=== PATIENT | female | born 1950 | race Caucasian/White ===

== ENCOUNTER 2019-07-16 15:10 | Outpatient (CLI) | payer MEDICARE ==
[2019-07-16 16:06] LABS: PARTIAL THROMBOPLASTIN TIME 27 SECONDS (22-32)
== END 2019-07-16 23:59 | disposition home or self-care (01) ==
LOC: LAB 15:10
PROVIDERS: ATTEND Otolaryngology
DX: D69.1 Qualitative platelet defects (principal)
CPT/HCPCS: 36415; 85576; 85610; 85730

== ENCOUNTER 2020-03-06 21:24 | Emergency (ER) | payer MEDICARE ==
[~2020-03-06] VITALS: Ht 165.1 cm; Wt 79.1 kg
[2020-03-06] MEDS ORDERED: glucagon, human recombinant 1mg kit IV ONE (21:45)
[2020-03-06] MEDS ORDERED: normal saline 1000ml 1,000 ML IV ONE (22:15)
[2020-03-06] MEDS ORDERED: ondansetron/PF 4mg/2ml inj IV ONE (22:15)
--- NOTE | 2020-03-06 22:28 | NUR ---
PO CHALLENGE UNSUCCESSFUL. PATIENT ATTEMPTED TO DRINK WATER, WAS UNABLE TO KEEP IT DOWN
--- NOTE | 2020-03-06 23:15 | NUR ---
PATIENT TO GI LAB
[2020-03-06 23:19] VITALS: BP 136/74
[2020-03-06] MEDS ORDERED: LIDOcaine Viscous 15ml cup ONE (23:24)
[2020-03-06] MEDS ORDERED: MIDAZolam 5mg/5ml vial ONE (23:24)
[2020-03-06] MEDS ORDERED: fentaNYL/PF 50MCG/1 ML 2ML syringe ONE (23:24)
[2020-03-06 23:50] VITALS: BP 99/61
[2020-03-07] VITALS: BP 100/60
[2020-03-07 00:10] VITALS: BP 111/62
[2020-03-07 00:20] VITALS: BP 109/73
[2020-03-07 00:36] VITALS: BP 124/87
[2020-03-07] MEDS ORDERED: MIDAZolam 5mg/ml 2ml vial IV ONE (00:50)
[2020-03-07] MEDS ORDERED: fentaNYL/PF 50MCG/1 ML 2ML syringe IV ONE (00:50)
== END 2020-03-07 00:53 | disposition home or self-care (01) ==
LOC: ER 21:24
DX: T18.128A Food in esophagus causing other injury, initial encounter (principal); K21.9 Gastro-esophageal reflux disease without esophagitis; X58.XXXA Exposure to other specified factors, initial encounter; Y93.89 Activity, other specified; Y92.89 Other specified places as the place of occurrence of the external cause; Y99.8 Other external cause status
CPT/HCPCS: 43239; 43247; 43248; 96374; 96375; 99284; J1610; J2250; J2405; J3010; J7030; 88305; 88312; 99152; A4620

== ENCOUNTER 2021-09-25 13:49 | Inpatient (IN) | payer MEDICARE ==
[~2021-09-25] VITALS: Ht 162.6 cm; Wt 72.3 kg
[2021-09-25 15:16] LABS: BASOPHILS # (AUTO) 0.1 X10'3 (0-0.2); BASOPHILS % (AUTO) 0.5 % (0-1); EOSINOPHILS % (AUTO) 0 % (0-6); HEMATOCRIT 41.5 % (35.0-45.0); LYMPHOCYTES # (AUTO) 1.1 X10'3 (1.1-4.8); LYMPHOCYTES % (AUTO) 8.2 % (21-51); MEAN CORPUSCULAR HEMOGLOBIN 30.5 PG (27.0-31.0); MEAN CORPUSCULAR HGB CONC 33.8 g/dL (33.0-36.5); MEAN CORPUSCULAR VOLUME 90.1 FL (78-98); MONOCYTES # (AUTO) 1.7 X10'3 (0-0.9); MONOCYTES % (AUTO) 12.7 % (2-12); NEUTROPHILS # (AUTO) 10.5 X10'3 (1.8-7.7); NEUTROPHILS % (AUTO) 78.6 % (42-75); PLATELET COUNT 215 X10'3 (140-440); RED CELL DISTRIBUTION WIDTH 14.2 % (11.5-14.5); WHITE BLOOD COUNT 13.4 X10'3 (4.5-11.0)
[2021-09-25 15:24] LABS: APTT 27 SECONDS (22-32); D-DIMER 1.42 MG/L FEU (0-0.50)
[2021-09-25 15:27] LABS: ALANINE AMINOTRANSFERASE 46 U/L (12-78); ALBUMIN 4.2 G/DL (3.4-5.0); ALBUMIN/GLOBULIN RATIO 1.1 (1.1-1.5); ALKALINE PHOSPHATASE 64 IU/L (46-116); ANION GAP 16 (8-16); ASPARTATE AMINO TRANSFERASE 30 U/L (10-37); BILIRUBIN,TOTAL 1.1 MG/DL (0.1-1.0); BLOOD UREA NITROGEN 34 MG/DL (7-18); BUN/CREATININE RATIO 15.9 (6.6-38.0); CALCIUM 10.7 MG/DL (8.5-10.1); CHLORIDE 102 MMOL/L (99-107); CREATININE 2.14 MG/DL (0.40-0.90); GLUCOSE 133 MG/DL (70-104); POTASSIUM 3.8 MMOL/L (3.5-5.1); SODIUM 139 MMOL/L (135-145); TOTAL CARBON DIOXIDE 20.6 MMOL/L (24-32); eGFR 23 ML/MIN
[2021-09-25 15:38] LABS: LIPASE 55 U/L (73-393); MAGNESIUM 1.8 MG/DL (1.5-2.4)
[2021-09-25] MEDS ORDERED: normal saline 1000ML IV soln IV ONE ×2 (16:10→17:25)
[2021-09-25] MEDS ORDERED: CefTRIAXone 2gm/D5W 50ml BAG 50 ML IV ONE (17:25)
[2021-09-25 19:30] LABS: CLARITY,URINE CLEAR (Clear); COLOR,URINE YELLOW (Yellow); GLUCOSE, URINE NEGATIVE (Neg); KETONES,URINE NEGATIVE (Neg); LEUKOCYTE ESTERASE ,URINE NEGATIVE (Neg); NITRITES, URINE NEGATIVE (Neg); OCCULT BLOOD,URINE TRACE-INTACT (Neg); PH,URINE 5.5 (4.8-8.0); PROTEIN,URINE NEGATIVE (Neg); UROBILINOGEN,URINE 0.2 E.U/dL (0.2-1.0)
[2021-09-25 19:33] LABS: UA COLLECTION TYPE CLN CATCH MIDSTREAM
[2021-09-25 19:36] LABS: BACTERIA,URINE FEW /HPF (Neg); RBC,URINE 0-2 /HPF (0-2); SQUAMOUS EPITHELIAL CELL,UR FEW /LPF (FEW)
[2021-09-25 19:37] LABS: MUCUS STRANDS FEW /LPF (Neg)
[2021-09-25] MEDS ORDERED: mag hydrox/Alum hydrox/simeth 30ml oral suspension PO PRN (21:05)
[2021-09-25] MEDS ORDERED: dextrose 50%-water 50ml dispensing syringe IV PRN ×2 (21:05)
[2021-09-25] MEDS ORDERED: dextrose ORAL solution 15 GM/59 ML bottle PO PRN ×2 (21:05)
[2021-09-25] MEDS ORDERED: acetaminophen 325mg tablet PO PRN (21:05)
[2021-09-25] MEDS ORDERED: potassium CL 10mEq/100ml bag 100 ML IV PRN (21:05)
[2021-09-25] MEDS ORDERED: magnesium Cl slow-release 64mg tablet PO PRN (21:05)
[2021-09-25] MEDS ORDERED: insulin Lispro (HumaLOG) vial - multi-dose SQ SCH (21:05)
[2021-09-25] MEDS ORDERED: potassium Cl 20 mEq SR tablet PO PRN ×2 (21:05)
[2021-09-25] MEDS ORDERED: magnesium 4gm in 100ml NS 100 ML IV PRN (21:05)
[2021-09-25] MEDS ORDERED: glucagon, human recombinant 1mg kit SUBCUT PRN (21:05)
[2021-09-25] MEDS ORDERED: MESSAGE TO PHARMACY PO ONE (21:05)
[2021-09-25] MEDS ORDERED: magnesium 2GM in 50ml NS 50 ML IV PRN (21:05)
[2021-09-25 21:34] LABS: HEMOGLOBIN A1C 5.4 % (4.5-6.2)
[2021-09-25] MEDS ORDERED: FLUT1BLS12 (23:37)
[2021-09-25] MEDS ORDERED: DOXE50CA4 PO (23:37)
[2021-09-25] MEDS ORDERED: SYN0.088T PO (23:37)
[2021-09-25] MEDS ORDERED: SIMV-42 PO (23:37)
[2021-09-25] MEDS ORDERED: LOSA25TA96 PO (23:37)
[2021-09-25] MEDS ORDERED: METF-900 PO (23:37)
[2021-09-26] MEDS ORDERED: METF-438 PO (01:02)
[2021-09-26] MEDS ORDERED: DOXE25CA3 PO (01:04)
[2021-09-26] MEDS: heparin, porcine 5000 units/ml vial SQ SCH ×4 (01:12→23:35)
[2021-09-26] MEDS ORDERED: LOSA100T57 PO (01:19)
[2021-09-26] MEDS: doxepin 25mg capsule PO SCH ×2 (01:34→22:13)
[2021-09-26] MEDS ORDERED: hydrALAZINE 20mg/ml inj. IV ONE (02:45)
[2021-09-26 03:01] LABS: BASOPHILS % (AUTO) 0.4 % (0-1); EOSINOPHILS % (AUTO) 0 % (0-6); HEMATOCRIT 37.2 % (35.0-45.0); HEMOGLOBIN 12.6 g/dl (12.0-16.0); LYMPHOCYTES # (AUTO) 0.6 X10'3 (1.1-4.8); LYMPHOCYTES % (AUTO) 7.7 % (21-51); MEAN CORPUSCULAR HEMOGLOBIN 30.7 PG (27.0-31.0); MEAN CORPUSCULAR VOLUME 90.3 FL (78-98); MEAN PLATELET VOLUME 7.1 FL (7.4-10.4); MONOCYTES # (AUTO) 0.8 X10'3 (0-0.9); MONOCYTES % (AUTO) 10.4 % (2-12); NEUTROPHILS # (AUTO) 6.3 X10'3 (1.8-7.7); NEUTROPHILS % (AUTO) 81.5 % (42-75); PLATELET COUNT 111 X10'3 (140-440); RED BLOOD COUNT 4.12 X10'6 (4.20-5.60); RED CELL DISTRIBUTION WIDTH 13.6 % (11.5-14.5); WHITE BLOOD COUNT 7.7 X10'3 (4.5-11.0)
--- NOTE | 2021-09-26 03:05 | NUR ---
Received report from ANNA Savage. Awaiting patient arrival to the floor.
[2021-09-26 03:15] LABS: ALANINE AMINOTRANSFERASE 41 U/L (12-78); ALBUMIN 3.6 G/DL (3.4-5.0); ALKALINE PHOSPHATASE 58 IU/L (46-116); ANION GAP 10 (8-16); ASPARTATE AMINO TRANSFERASE 28 U/L (10-37); BILIRUBIN,TOTAL 0.8 MG/DL (0.1-1.0); BLOOD UREA NITROGEN 25 MG/DL (7-18); BUN/CREATININE RATIO 16.3 (6.6-38.0); CALCIUM 9.7 MG/DL (8.5-10.1); CHLORIDE 104 MMOL/L (99-107); CREATININE 1.53 MG/DL (0.40-0.90); GLUCOSE 104 MG/DL (70-104); POTASSIUM 3.8 MMOL/L (3.5-5.1); SODIUM 137 MMOL/L (135-145); TOTAL CARBON DIOXIDE 22.7 MMOL/L (24-32); TOTAL PROTEIN 7.1 G/DL (6.4-8.2); eGFR 34 ML/MIN
[2021-09-26 03:18] LABS: MAGNESIUM 1.6 MG/DL (1.5-2.4)
[2021-09-26 03:20] VITALS: BP 138/83
--- NOTE | 2021-09-26 03:20 | NUR ---
Patient arrived to the floor via gurney accompanied by staff. Placed in room 360B. Patient awake alert and oriented x4, in no apparent distress. Call light and items of frequent use within reach. Will continue to monitor.
--- NOTE | 2021-09-26 06:15 | NUR ---
Problems reprioritized. Patient report given, questions answered & plan of care reviewed with ANNA Drake.
[2021-09-26 07:00] VITALS: BP 135/80
--- NOTE | 2021-09-26 07:04 | NUR ---
Patient in room [facility] 360. I have received report from Shannan CASTILLO and had the opportunity to ask questions and assume patient care.
[2021-09-26] MEDS: K and/or MAG REPLACEMENT MC SCH ×2 (08:00→20:00)
[2021-09-26] MEDS ORDERED: losartan 50mg tablet PO SCH (08:00)
[2021-09-26] MEDS: docusate sod 100mg capsule PO SCH ×2 (08:09→20:45)
[2021-09-26] MEDS: levoTHYROXINE 88mcg tablet PO SCH (08:09)
--- NOTE | 2021-09-26 09:17 | NUR ---
Diabetes consult: Pt admitted w/ 3 day hx of nausea and vomiting, left lower quadrant abdominal tenderness likely secondary to bladder spasms from UTI and sepsis secondary to UTI per EMR. Noted A1C 5.4 and on CCHO diet. DM ed not indicated at this time, TC to RN to recommend Regular diet if MD agreeable. CT scan showed fatty/cirrhotic liver and hiatal hernia per MD note. Pending PO at this time. LBM 1/3 w/ routine colace. Will continue to monitor and make recommendations as appropriate. Recs: 1. Liberalize to Regular diet, A1C 5.4 2. Monitor need for additional protein pending PO intake 3. Bowel care per rx 4. Scaled wts Addendum: 09/26/21 at [address] Amended: Links added.
[2021-09-26] MEDS: ondansetron/PF 4mg/2ml inj IV PRN (10:07)
[2021-09-26] MEDS: CefTRIAXone/D5W-Rocephin 1gm 50 ML IV SCH (10:07)
[2021-09-26 11:00] VITALS: BP 145/85
[2021-09-26] MEDS: normal saline 1000ml 1,000 ML IV SCH ×2 (15:32→21:20)
--- NOTE | 2021-09-26 16:29 | NUR ---
PAGER ID: [phone] MESSAGE: NEGRITA MEYERS#[id number]- PT WOULD LIKE TO HAVE A NORCO 5 FOR HER GENERALIZED PAIN PLZ. THANK YOU SO MUCH. JESSY thomson [phone]
[2021-09-26] MEDS ORDERED: hydrALAZINE 20mg/ml inj. IV PRN (16:40)
[2021-09-26] MEDS: HYDROcodone/acetaminophen 10/325mg tab PO PRN ×2 (17:14→23:35)
[2021-09-26 18:00] VITALS: BP 119/74
--- NOTE | 2021-09-26 18:23 | NUR ---
Problems reprioritized. Patient report given, questions answered & plan of care reviewed with ZORAIDA CASTILLO TRAVELER.
[2021-09-26] MEDS: lactobacillus rhamnosus 10,000 MMU CELLS/CAPSULE PO SCH (20:45)
[2021-09-26] MEDS ORDERED: doxepin 25mg capsule PO SCH (21:00)
[2021-09-26] MEDS: atorvastatin 20mg tablet PO SCH (22:13)
[2021-09-26] MEDS: insulin glargine (Lantus) pen - multi-dose SQ SCH (22:27)
[2021-09-27 06:49] LABS: BASOPHILS % (AUTO) 0.3 % (0-1); EOSINOPHILS % (AUTO) 0 % (0-6); HEMATOCRIT 29.8 % (35.0-45.0); HEMOGLOBIN 10.4 g/dl (12.0-16.0); LYMPHOCYTES # (AUTO) 0.6 X10'3 (1.1-4.8); LYMPHOCYTES % (AUTO) 16.9 % (21-51); MEAN CORPUSCULAR HEMOGLOBIN 31.1 PG (27.0-31.0); MEAN CORPUSCULAR HGB CONC 34.8 g/dL (33.0-36.5); MEAN CORPUSCULAR VOLUME 89.4 FL (78-98); MEAN PLATELET VOLUME 7.3 FL (7.4-10.4); MONOCYTES # (AUTO) 0.4 X10'3 (0-0.9); MONOCYTES % (AUTO) 11.4 % (2-12); NEUTROPHILS # (AUTO) 2.4 X10'3 (1.8-7.7); NEUTROPHILS % (AUTO) 71.4 % (42-75); PLATELET COUNT 74 X10'3 (140-440); RED BLOOD COUNT 3.34 X10'6 (4.20-5.60); RED CELL DISTRIBUTION WIDTH 13.8 % (11.5-14.5); WHITE BLOOD COUNT 3.4 X10'3 (4.5-11.0)
--- NOTE | 2021-09-27 06:55 | NUR ---
Patient in room [facility] 360. I have received report from Roro CASTILLO Traveler and had the opportunity to ask questions and assume patient care.
[2021-09-27 07:03] LABS: ALANINE AMINOTRANSFERASE 35 U/L (12-78); ALBUMIN 2.7 G/DL (3.4-5.0); ALBUMIN/GLOBULIN RATIO 0.9 (1.1-1.5); ALKALINE PHOSPHATASE 49 IU/L (46-116); ANION GAP 8 (8-16); ASPARTATE AMINO TRANSFERASE 25 U/L (10-37); BILIRUBIN,TOTAL 0.6 MG/DL (0.1-1.0); BLOOD UREA NITROGEN 13 MG/DL (7-18); BUN/CREATININE RATIO 11.1 (6.6-38.0); CALCIUM 8.6 MG/DL (8.5-10.1); CHLORIDE 108 MMOL/L (99-107); CREATININE 1.17 MG/DL (0.40-0.90); GLUCOSE 90 MG/DL (70-104); MAGNESIUM 1.6 MG/DL (1.5-2.4); POTASSIUM 3.6 MMOL/L (3.5-5.1); SODIUM 140 MMOL/L (135-145); TOTAL CARBON DIOXIDE 24.3 MMOL/L (24-32); TOTAL PROTEIN 5.6 G/DL (6.4-8.2); eGFR 46 ML/MIN
[2021-09-27 08:00] VITALS: BP 124/53
[2021-09-27] MEDS: heparin, porcine 5000 units/ml vial SQ SCH ×2 (08:00→16:00)
[2021-09-27] MEDS: K and/or MAG REPLACEMENT MC SCH ×2 (08:00→20:00)
[2021-09-27] MEDS: HYDROcodone/acetaminophen 10/325mg tab PO PRN ×2 (09:48→15:17)
[2021-09-27] MEDS: levoTHYROXINE 88mcg tablet PO SCH (09:49)
[2021-09-27] MEDS: lactobacillus rhamnosus 10,000 MMU CELLS/CAPSULE PO SCH ×2 (09:49→21:03)
[2021-09-27] MEDS: docusate sod 100mg capsule PO SCH ×2 (09:49→21:03)
[2021-09-27] MEDS: normal saline 1000ml 1,000 ML IV SCH ×2 (09:52→17:20)
[2021-09-27] MEDS: CefTRIAXone/D5W-Rocephin 1gm 50 ML IV SCH (09:52)
[2021-09-27] MEDS: ondansetron/PF 4mg/2ml inj IV PRN ×2 (09:57→17:30)
[2021-09-27] MEDS ORDERED: magnesium citrate 296ml oral solution PO ONE (10:35)
[2021-09-27 12:00] VITALS: BP 112/73
--- NOTE | 2021-09-27 13:06 | NUR ---
Reassessment: Pt continues on CHO controlled diet and eating well with average 83% PO intake meeting estimated nutrient needs. TC to RN with recommendation to liberalize to regular diet in view of A1c 5.4% though RN unavailable, message left with another RN. LBM 09/26, receiving routine bowel care. No nutrition intervention implemented at this time. Will continue to follow. Recommendations: 1. Liberalize to regular diet given DM well controlled with A1C 5.4% 2. Routine bowel care 3. Scaled weight this admit; weekly scaled weights thereafter Addendum: 09/27/21 at [address] Amended: Links added.
--- NOTE | 2021-09-27 18:43 | NUR ---
Patient in room [facility] 360. I have received report from ANNA Caro and had the opportunity to ask questions and assume patient care.
[2021-09-27] MEDS: insulin glargine (Lantus) pen - multi-dose SQ SCH (21:00)
[2021-09-27] MEDS: doxepin 25mg capsule PO SCH (21:03)
[2021-09-27] MEDS: atorvastatin 20mg tablet PO SCH (21:03)
[2021-09-28] MEDS: normal saline 1000ml 1,000 ML IV SCH ×2 (03:20→08:54)
--- NOTE | 2021-09-28 03:54 | NUR ---
Pt C/O difficulty voiding for the last 9hrs,bladder scanned for [address] Marti notifed and an order for straight cath obtained.Pt straight cathed for 475 ml.Pt tolerated denied any discomfort.
[2021-09-28 06:51] LABS: BASOPHILS % (AUTO) 0.4 % (0-1); EOSINOPHILS % (AUTO) 0.1 % (0-6); HEMATOCRIT 33.2 % (35.0-45.0); HEMOGLOBIN 11.4 g/dl (12.0-16.0); LYMPHOCYTES # (AUTO) 0.5 X10'3 (1.1-4.8); LYMPHOCYTES % (AUTO) 8.8 % (21-51); MEAN CORPUSCULAR HEMOGLOBIN 31.3 PG (27.0-31.0); MEAN CORPUSCULAR HGB CONC 34.5 g/dL (33.0-36.5); MEAN CORPUSCULAR VOLUME 90.7 FL (78-98); MEAN PLATELET VOLUME 7.2 FL (7.4-10.4); MONOCYTES # (AUTO) 0.5 X10'3 (0-0.9); MONOCYTES % (AUTO) 9.6 % (2-12); NEUTROPHILS # (AUTO) 4.6 X10'3 (1.8-7.7); NEUTROPHILS % (AUTO) 81.1 % (42-75); PLATELET COUNT 114 X10'3 (140-440); RED BLOOD COUNT 3.66 X10'6 (4.20-5.60); WHITE BLOOD COUNT 5.7 X10'3 (4.5-11.0)
[2021-09-28 07:16] LABS: ALANINE AMINOTRANSFERASE 155 U/L (12-78); ALBUMIN/GLOBULIN RATIO 0.9 (1.1-1.5); ALKALINE PHOSPHATASE 73 IU/L (46-116); ANION GAP 10 (8-16); ASPARTATE AMINO TRANSFERASE 136 U/L (10-37); BILIRUBIN,TOTAL 0.7 MG/DL (0.1-1.0); BLOOD UREA NITROGEN 12 MG/DL (7-18); CALCIUM 8.6 MG/DL (8.5-10.1); CHLORIDE 103 MMOL/L (99-107); CREATININE 1.09 MG/DL (0.40-0.90); GLUCOSE 99 MG/DL (70-104); POTASSIUM 3.5 MMOL/L (3.5-5.1); SODIUM 137 MMOL/L (135-145); TOTAL PROTEIN 6.3 G/DL (6.4-8.2); eGFR 50 ML/MIN
[2021-09-28 08:00] VITALS: BP 125/71
[2021-09-28] MEDS: docusate sod 100mg capsule PO SCH (08:00)
[2021-09-28] MEDS: K and/or MAG REPLACEMENT MC SCH (08:00)
[2021-09-28] MEDS: HYDROcodone/acetaminophen 10/325mg tab PO PRN (08:53)
[2021-09-28] MEDS: CefTRIAXone/D5W-Rocephin 1gm 50 ML IV SCH (09:51)
[2021-09-28] MEDS: lactobacillus rhamnosus 10,000 MMU CELLS/CAPSULE PO SCH (09:51)
[2021-09-28] MEDS: levoTHYROXINE 88mcg tablet PO SCH (09:52)
[2021-09-28] MEDS: heparin, porcine 5000 units/ml vial SQ SCH ×2 (09:52)
[2021-09-28] MEDS ORDERED: METF-1203 PO (11:25)
[2021-09-28 11:27] VITALS: BP 114/69
--- NOTE | 2021-09-28 11:33 | NUR ---
Spoke with hospitalist and ok to bladder scan before discharge.
--- NOTE | 2021-09-28 11:37 | NUR ---
Pt. Bladder scanned 240 ml in bladder. Pt. states she is only peeing a little at a time. Hospitalist aware.
[2021-09-28] MEDS ORDERED: FLO0.4C PO (13:13)
--- NOTE | 2021-09-28 14:34 | NUR ---
Pt. bladder scanned. 468ml in bladder. Hospitalist aware. States to straight cath and DC on flomax.
--- NOTE | 2021-09-28 15:28 | NUR ---
Pt. straight cathed. 400ml output.
--- NOTE | 2021-09-28 15:30 | NUR ---
Pt. discharged by registry np while primary RN on lunch. Per registry np pt. was educated on retention, flomax, metformin change. IV was DC'd, cannula intact. Pt. left with her belongings to go home.
== END 2021-09-28 15:32 | disposition home or self-care (01) | DRG 871 ==
LOC: ER 13:50 → ED HOLD 21:07 → SUR 3N 09-26 03:00
PROVIDERS: ADMIT Family Medicine; ATTEND Family Medicine
DX: A41.9 Sepsis, unspecified organism (principal); N17.0 Acute kidney failure with tubular necrosis; N39.0 Urinary tract infection, site not specified; M48.56XA Collapsed vertebra, not elsewhere classified, lumbar region, initial encounter for fracture; A08.4 Viral intestinal infection, unspecified; E86.0 Dehydration; G47.33 Obstructive sleep apnea (adult) (pediatric); E03.9 Hypothyroidism, unspecified; E78.5 Hyperlipidemia, unspecified; I71.2 Thoracic aortic aneurysm, without rupture; K74.60 Unspecified cirrhosis of liver; I12.9 Hypertensive chronic kidney disease with stage 1 through stage 4 chronic kidney disease, or unspecified chronic kidney disease; N18.9 Chronic kidney disease, unspecified; K44.9 Diaphragmatic hernia without obstruction or gangrene; K21.9 Gastro-esophageal reflux disease without esophagitis; K59.00 Constipation, unspecified; Z80.3 Family history of malignant neoplasm of breast; Z83.3 Family history of diabetes mellitus; Z79.899 Other long term (current) drug therapy; Z90.49 Acquired absence of other specified parts of digestive tract; Z84.89 Family history of other specified conditions
CPT/HCPCS: 36415; 71045; 72100; 72128; 74176; 80053; 81001; 82948; 83036; 83605; 83690; 83735; 83880; 84145; 84443; 84484; 85025; 85379; 85610; 85730; 87040; 87081; 87088; 93005; 96361; 96365; 96366; 97116; 97161; 99285; G0378; J0696; J1644; J1815; J2405; J7030

== ENCOUNTER 2022-04-16 10:28 | Observation (INO) | payer MEDICARE ==
[2022-04-09 10:50] LABS: BASOPHILS % (AUTO) 0.9 % (0-1); EOSINOPHILS % (AUTO) 0.2 % (0-6); LYMPHOCYTES # (AUTO) 0.6 X10'3 (1.1-4.8); LYMPHOCYTES % (AUTO) 13.9 % (21-51); MEAN CORPUSCULAR HEMOGLOBIN 30.4 PG (27.0-31.0); MEAN CORPUSCULAR HGB CONC 33.5 g/dL (33.0-36.5); MEAN CORPUSCULAR VOLUME 90.6 FL (78-98); MEAN PLATELET VOLUME 7.4 FL (7.4-10.4); MONOCYTES # (AUTO) 0.3 X10'3 (0-0.9); MONOCYTES % (AUTO) 6.7 % (2-12); NEUTROPHILS # (AUTO) 3.1 X10'3 (1.8-7.7); NEUTROPHILS % (AUTO) 78.3 % (42-75); PRE OP HEMOGLOBIN 12.8 g/dL (12.0-16.0); PRE OP PLATELET COUNT 113 X10'3 (140-440); RED CELL DISTRIBUTION WIDTH 13.7 % (11.5-14.5)
[2022-04-09 11:05] LABS: ALBUMIN 3.9 G/DL (3.4-5.0); ALBUMIN/GLOBULIN RATIO 1.1 (1.1-1.5); ALKALINE PHOSPHATASE 77 IU/L (46-116); BLOOD UREA NITROGEN 19 MG/DL (7-18); BUN/CREATININE RATIO 14.7 (6.6-38.0); CALCIUM 10.4 MG/DL (8.5-10.1); CHLORIDE 109 MMOL/L (99-107); CREATININE 1.29 MG/DL (0.40-0.90); PRE OP ALT 31 U/L (30-65); PRE OP ANION GAP 12 (8-16); PRE OP AST 24 U/L (10-37); PRE OP BILIRUB, TOTAL 0.6 MG/DL (0.0-1.0); PRE OP GLUCOSE 107 MG/DL (70-104); PRE OP POTASSIUM 3.9 MMOL/L (3.4-5.1); PRE OP SODIUM 144 MMOL/L (135-145); TOTAL CARBON DIOXIDE 22.9 MMOL/L (24-32); TOTAL PROTEIN 7.6 G/DL (6.4-8.2); eGFR 41 ML/MIN
[~2022-04-16] VITALS: Ht 165.1 cm; Wt 67.4 kg
[2022-04-16] VITALS (25 sets, daily range): BP systolic 96–152; BP diastolic 56–96
[~2022-04-16 10:28] MED LIST: DOXE25CA3 PO; FLUT16SP26 BOTHNARES; LOSA100T57 PO; METF-438 PO; SIMV-42 PO; SYN0.088T PO; ceFAZolin inj. 2,000 MG in dextrose 5%-water 100 ML IV ONE; famotidine 20mg tablet PO ONE; ringers solution, lacted 1,000 ML IV SCH
[2022-04-16] MEDS ORDERED: sevoflurane 250ml liquid IH ONE (12:06)
[2022-04-16] MEDS ORDERED: dexamethasone sod phosphate 10mg/ml inj ONE (12:06)
[2022-04-16] MEDS ORDERED: glycopyrrolate 0.2mg/ml inj ONE (12:06)
[2022-04-16] MEDS ORDERED: fentaNYL/PF 50MCG/1 ML 2ML syringe ONE (12:12)
[2022-04-16] MEDS ORDERED: midazolam 1 mg/ML 2ml injection ONE (12:12)
[2022-04-16] MEDS ORDERED: propofol inj 20 ML IV ONE (12:13)
[2022-04-16] MEDS ORDERED: rocuronium 10mg/ml inj IV ONE (12:18)
[2022-04-16] MEDS ORDERED: LIDOcaine 1% 30ml preserv. free vial ONE (12:27)
[2022-04-16] MEDS ORDERED: BUPIVACAINE liposomal/PF 13.3 MG/ML vial IM ONE (12:28)
[2022-04-16] MEDS ORDERED: BUPIVAcaine/PF 2.5mg/ml (0.25%) 10ml vial ONE (12:28)
[2022-04-16] MEDS ORDERED: ringers solution, lacted 1,000 ML IV SCH (13:00)
[2022-04-16] MEDS ORDERED: morphine 2 MG/ML inj. syringe IV PRN (13:00)
[2022-04-16] MEDS ORDERED: meperidine/PF 25mg/ml syringe IV PRN ×2 (13:00)
[2022-04-16] MEDS ORDERED: proCHLORperazine 10 MG/2 ml inj IV PRN (13:00)
[2022-04-16] MEDS ORDERED: ondansetron/PF 4mg/2ml inj IV PRN ×2 (13:00→14:15)
[2022-04-16] MEDS ORDERED: labetalol 20mg/4ml (5mg/ml) syringe IV ONE (13:29)
[2022-04-16] MEDS ORDERED: ondansetron/PF 4mg/2ml inj ONE (13:35)
[2022-04-16] MEDS ORDERED: neostigmine methylsulfate 1 MG/ML 10ml vial ONE (13:38)
--- NOTE | 2022-04-16 13:53 | NUR ---
Received from OR via [facility], accompanied by Anesthesiologist and report given by DR. MORRIS Anesthesiologist. PATIENT WAKING UP, NO S/S OF PAIN, V/S WNL, SCD ON, 20G TO RUE, ABDOMEN LAP SITE X3 C/D/I WITH ABDOMINAL BINDER. Addendum: 04/16/22 at 1417 by Kenny Abdi RN Amended: Links added.
[2022-04-16] MEDS: meperidine/PF 25mg/ml syringe IV PRN ×2 (14:11→19:36)
[2022-04-16] MEDS ORDERED: naloxone 0.4 mg/ml inj IV PRN (14:15)
[2022-04-16] MEDS ORDERED: normal saline 1000ml 1,000 ML IV SCH (14:15)
[2022-04-16] MEDS: potassium CL 20mEq in D5-1/2NS 1,000 ML IV SCH ×2 (14:15→23:03)
[2022-04-16] MEDS ORDERED: fluticasone nasal spray 16GM bottle NS PRN (14:20)
[2022-04-16] MEDS: morphine 4 MG/ML inj SYRINge IV PRN ×2 (14:52→19:36)
[2022-04-16] MEDS: HYDROmorph/NS 0.2 mg/ml PCA 100 ML IV SCH ×5 (16:15→23:00)
--- NOTE | 2022-04-16 17:53 | NUR ---
PATIENT HAS MET ALL CRITERIA FOR TRANSFER TO SURGICAL FLOOR. VSS. DRESSINGS INTACT. BED LOW, CALL LIGHT PRESENT AND 2 RAILS UP. RN PRESENT TO ACCEPT CARE OF PATIENT AND REPORT HAS BEEN CALLED. ALL QUESTIONS ANSWERED TO ACCEPTING RN. Addendum: 04/16/22 at 1816 by Kenny Abdi RN Amended: Links added.
--- NOTE | 2022-04-16 18:30 | NUR ---
PATIENT ADMITTED TO ROOM 4024A FROM RECOVERY ROOM AFTER INGUINAL HERNIA REPAIR WAS DONE BY DR. HERNANDEZ. PLACED COMFORTABLE IN BED. VITAL SIGNS MONITORED.
[2022-04-16] MEDS: doxepin 25mg capsule PO SCH (20:33)
[2022-04-16] MEDS: atorvastatin 20mg tablet PO SCH (20:33)
[2022-04-16] MEDS: docusate sod 100mg capsule PO SCH (20:34)
[2022-04-16] MEDS: heparin, porcine 5000 units/ml vial SQ SCH (20:34)
[2022-04-16] MEDS: sennosides/docusate sodium tablet PO SCH (20:40)
[2022-04-17] MEDS: HYDROmorph/NS 0.2 mg/ml PCA 100 ML IV SCH ×9 (01:00→17:00)
[2022-04-17 02:00] VITALS: BP 137/57
[2022-04-17 06:00] VITALS: BP 137/57
[2022-04-17] MEDS: potassium CL 20mEq in D5-1/2NS 1,000 ML IV SCH ×2 (06:15→10:11)
--- NOTE | 2022-04-17 06:30 | NUR ---
Problems reprioritized. Patient report given, questions answered & plan of care reviewed with JAME CASTILLO.
[2022-04-17 07:12] LABS: BASOPHILS % (AUTO) 0.3 % (0-1); EOSINOPHILS % (AUTO) 0.1 % (0-6); HEMATOCRIT 37.5 % (35.0-45.0); HEMOGLOBIN 12.8 g/dl (12.0-16.0); LYMPHOCYTES # (AUTO) 0.4 X10'3 (1.1-4.8); LYMPHOCYTES % (AUTO) 5.7 % (21-51); MEAN CORPUSCULAR HEMOGLOBIN 30.8 PG (27.0-31.0); MEAN CORPUSCULAR HGB CONC 34.1 g/dL (33.0-36.5); MEAN CORPUSCULAR VOLUME 90.5 FL (78-98); MEAN PLATELET VOLUME 7.9 FL (7.4-10.4); MONOCYTES # (AUTO) 0.4 X10'3 (0-0.9); MONOCYTES % (AUTO) 6.7 % (2-12); NEUTROPHILS # (AUTO) 5.6 X10'3 (1.8-7.7); NEUTROPHILS % (AUTO) 87.2 % (42-75); PLATELET COUNT 123 X10'3 (140-440); RED BLOOD COUNT 4.15 X10'6 (4.20-5.60); RED CELL DISTRIBUTION WIDTH 13.9 % (11.5-14.5); WHITE BLOOD COUNT 6.4 X10'3 (4.5-11.0)
[2022-04-17 07:37] LABS: ALANINE AMINOTRANSFERASE 41 U/L (12-78); ALBUMIN 3.5 G/DL (3.4-5.0); ALBUMIN/GLOBULIN RATIO 0.9 (1.1-1.5); ALKALINE PHOSPHATASE 75 IU/L (46-116); ANION GAP 9 (8-16); ASPARTATE AMINO TRANSFERASE 35 U/L (10-37); BILIRUBIN,TOTAL 0.6 MG/DL (0.1-1.0); BLOOD UREA NITROGEN 13 MG/DL (7-18); BUN/CREATININE RATIO 9.7 (6.6-38.0); CALCIUM 9.7 MG/DL (8.5-10.1); CHLORIDE 106 MMOL/L (99-107); CREATININE 1.34 MG/DL (0.40-0.90); GLUCOSE 123 MG/DL (70-104); POTASSIUM 4.4 MMOL/L (3.5-5.1); SODIUM 140 MMOL/L (135-145); TOTAL CARBON DIOXIDE 25.2 MMOL/L (24-32); TOTAL PROTEIN 7.4 G/DL (6.4-8.2); eGFR 39 ML/MIN
[2022-04-17] MEDS: docusate sod 100mg capsule PO SCH ×2 (08:29→19:49)
[2022-04-17] MEDS: sennosides/docusate sodium tablet PO SCH ×2 (08:30→19:50)
[2022-04-17] MEDS: losartan 50mg tablet PO SCH (08:30)
[2022-04-17] MEDS: heparin, porcine 5000 units/ml vial SQ SCH ×2 (08:30→19:51)
[2022-04-17] MEDS: levoTHYROXINE 88mcg tablet PO SCH (10:11)
[2022-04-17 18:00] VITALS: BP 121/62
--- NOTE | 2022-04-17 18:37 | NUR ---
Problems reprioritized. Patient report given, questions answered & plan of care reviewed with ANNA Gupta.
--- NOTE | 2022-04-17 18:40 | NUR ---
Patient in room [facility] 4024. I have received report from Jimena CASTILLO and had the opportunity to ask questions and assume patient care.
[2022-04-17] MEDS ORDERED: oxyCODONE/APAP 5-325mg tablet PO PRN (18:45)
[2022-04-17] MEDS: atorvastatin 20mg tablet PO SCH (19:50)
[2022-04-17] MEDS: oxyCODONE/APAP 5-325mg tablet PO PRN (19:51)
[2022-04-17] MEDS: doxepin 25mg capsule PO SCH (19:51)
[2022-04-17] MEDS ORDERED: PCA WASTE DOCUMENTATION MC SCH (20:25)
--- NOTE | 2022-04-17 20:53 | NUR ---
Discontinued pts [employer]IC[employer] Dilaudid CADD per MD orders. Last administration numbers are as follows; 11.68mg total over 28hrs. 59given/96attempts. wasted 41 mg with Sloane CASTILLO and reordered it on the eMAR.
[2022-04-17 22:00] VITALS: BP 126/65
[2022-04-18] MEDS: oxyCODONE/APAP 5-325mg tablet PO PRN ×2 (01:43→08:04)
[2022-04-18 06:00] VITALS: BP 118/80
--- NOTE | 2022-04-18 06:15 | NUR ---
Problems reprioritized. Patient report given, questions answered & plan of care reviewed with Ailyn CASTILLO.
[2022-04-18] MEDS: sennosides/docusate sodium tablet PO SCH (07:50)
[2022-04-18] MEDS: heparin, porcine 5000 units/ml vial SQ SCH (07:50)
[2022-04-18] MEDS: docusate sod 100mg capsule PO SCH (07:51)
[2022-04-18] MEDS: losartan 50mg tablet PO SCH (07:51)
[2022-04-18] MEDS: levoTHYROXINE 88mcg tablet PO SCH (08:03)
[2022-04-18] MEDS ORDERED: PER5325T PO (09:22)
[2022-04-18 10:00] VITALS: BP 114/74
--- NOTE | 2022-04-18 10:34 | NUR ---
PATIENT DISCHARGED IN STABLE CONDITION TO HOME. BELONGINGS SENT WITH PT. IV REMOVED TIP INTACT NO COMPLICATIONS. PT EDUCATED ON DISCHARGE FOLLOW UP/MEDS.
== END 2022-04-18 10:34 | disposition home or self-care (01) ==
LOC: PAS 10:28 → ORTHO 4S 14:18
PROVIDERS: ADMIT Surgery; ATTEND Surgery
DX: K42.0 Umbilical hernia with obstruction, without gangrene (principal); Z20.822 Contact with and (suspected) exposure to COVID-19; K62.89 Other specified diseases of anus and rectum; K66.0 Peritoneal adhesions (postprocedural) (postinfection); M62.08 Separation of muscle (nontraumatic), other site; Z79.84 Long term (current) use of oral hypoglycemic drugs; Z79.890 Hormone replacement therapy; Z79.899 Other long term (current) drug therapy
CPT/HCPCS: 36415; 49653; 64488; 80053; 82948; 83036; 85025; 85610; 87081; 93005; 96365; 96366; 96372; 96375; C1713; C1781; C9290; G0378; J0690; J1100; J1170; J1644; J2175; J2250; J2270; J2405; J2704; J2710; J3010; J3480; J3490; J7060; J7120; A4215; A4615; A4618

== ENCOUNTER 2022-08-10 14:23 | Emergency (ER) | payer MEDICARE ==
[~2022-08-10] VITALS: Ht 165.1 cm; Wt 63.0 kg
[~2022-08-10 14:23] MED LIST changes: +PER5325T PO; -ceFAZolin inj. 2,000 MG in dextrose 5%-water 100 ML IV ONE; -famotidine 20mg tablet PO ONE; -ringers solution, lacted 1,000 ML IV SCH
[2022-08-10 18:02] LABS: EOSINOPHILS % (AUTO) 0.2 % (0-6); LYMPHOCYTES # (AUTO) 0.9 X10'3 (1.1-4.8); LYMPHOCYTES % (AUTO) 24.1 % (21-51); MEAN CORPUSCULAR HEMOGLOBIN 30.9 PG (27.0-31.0); MEAN CORPUSCULAR HGB CONC 34.1 g/dL (33.0-36.5); MEAN CORPUSCULAR VOLUME 90.6 FL (78-98); MEAN PLATELET VOLUME 7.3 FL (7.4-10.4); MONOCYTES # (AUTO) 0.3 X10'3 (0-0.9); MONOCYTES % (AUTO) 7.7 % (2-12); NEUTROPHILS # (AUTO) 2.5 X10'3 (1.8-7.7); PLATELET COUNT 101 X10'3 (140-440); RED BLOOD COUNT 3.87 X10'6 (4.20-5.60); RED CELL DISTRIBUTION WIDTH 14.1 % (11.5-14.5); WHITE BLOOD COUNT 3.7 X10'3 (4.5-11.0)
[2022-08-10 18:18] LABS: ALANINE AMINOTRANSFERASE 20 U/L (12-78); ALBUMIN 3.7 G/DL (3.4-5.0); ALBUMIN/GLOBULIN RATIO 1.1 (1.1-1.5); ALKALINE PHOSPHATASE 78 IU/L (46-116); ANION GAP 9 (8-16); ASPARTATE AMINO TRANSFERASE 23 U/L (10-37); BILIRUBIN,TOTAL 0.4 MG/DL (0.1-1.0); BLOOD UREA NITROGEN 29 MG/DL (7-18); BUN/CREATININE RATIO 20.9 (6.6-38.0); CALCIUM 10.6 MG/DL (8.5-10.1); CHLORIDE 106 MMOL/L (99-107); CREATININE 1.39 MG/DL (0.40-0.90); GLUCOSE 85 MG/DL (70-104); POTASSIUM 3.8 MMOL/L (3.5-5.1); SODIUM 140 MMOL/L (135-145); TOTAL CARBON DIOXIDE 25.5 MMOL/L (24-32); eGFR 37 ML/MIN
[2022-08-10 18:21] LABS: C-REACTIVE PROTEIN < 0.05 MG/DL (0.0-0.5)
--- NOTE | 2022-08-10 21:00 | NUR ---
Small snack provided. Gabriele per Dr. Miguel.
--- NOTE | 2022-08-10 21:48 | NUR ---
Dr. Miguel bedside discussing diagnostic findings and plan of care with patient.
[2022-08-10] MEDS ORDERED: dexamethasone sod phosphate 10mg/ml inj IV STA ×3 (21:51→22:04)
[2022-08-10] MEDS ORDERED: ondansetron/PF 4mg/2ml inj IV ONE (23:25)
[2022-08-11] MEDS ORDERED: EMPA25TA PO (00:54)
--- NOTE | 2022-08-11 00:56 | NUR ---
Assumed care of patient. AOx4. In bed resting/ reading. Call light within reach. Med rec completed.
[2022-08-11] MEDS ORDERED: doxepin 25mg capsule PO ONE ×2 (01:05→22:00)
--- NOTE | 2022-08-11 03:59 | NUR ---
Pt sleeping. No distress.
--- NOTE | 2022-08-11 05:03 | NUR ---
Pt sleeping. No distress.
[2022-08-11] MEDS ORDERED: ringers solution, lacted 1,000 ML IV ONE (07:25)
--- NOTE | 2022-08-11 11:34 | NUR ---
TC FROM [facility] FOR MORE INFORMATION ABOUT PATIENT.
[2022-08-11] MEDS ORDERED: dexamethasone 4mg/ml inj IM SCH (21:45)
[2022-08-11] MEDS: dexamethasone 4mg/ml inj IV SCH (22:55)
[2022-08-11 23:00] VITALS: BP 137/84
--- NOTE | 2022-08-11 23:43 | NUR ---
PT PLACED ONTO A HOSPITAL BED
[2022-08-12] MEDS: dexamethasone 4mg/ml inj IV SCH (02:41)
[2022-08-12] MEDS ORDERED: levoTHYROXINE 88mcg tablet PO SCH (07:00)
[2022-08-12] MEDS ORDERED: EMPAGLIFLOZIN 25 MG TABLET PO SCH (08:00)
[2022-08-12] MEDS ORDERED: doxepin 10mg capsule PO SCH (21:00)
== END 2022-08-12 03:32 | disposition short-term general hospital (02) ==
LOC: ER 14:23
DX: G95.20 Unspecified cord compression (principal); Z20.822 Contact with and (suspected) exposure to COVID-19; K21.9 Gastro-esophageal reflux disease without esophagitis; I12.0 Hypertensive chronic kidney disease with stage 5 chronic kidney disease or end stage renal disease; E11.22 Type 2 diabetes mellitus with diabetic chronic kidney disease; E11.9 Type 2 diabetes mellitus without complications; Z91.041 Radiographic dye allergy status
CPT/HCPCS: 36415; 72141; 72146; 80053; 82948; 85025; 85651; 86140; 87811; 96361; 96374; 96375; 99285; J1100; J2405; J7120

== ENCOUNTER 2023-01-22 11:52 | Emergency (ER) | payer MEDICARE ==
[~2023-01-22] VITALS: Ht 165.1 cm; Wt 77.3 kg
[~2023-01-22 11:52] MED LIST changes: -DOXE25CA3 PO; +EMPA25TA PO
[2023-01-22] MEDS ORDERED: acetaminophen 325mg tablet PO ONE (12:20)
[2023-01-22] MEDS ORDERED: naproxen 500mg tablet PO ONE (12:20)
[2023-01-22 12:53] LABS: EOSINOPHILS % (AUTO) 0 % (0-6); LYMPHOCYTES # (AUTO) 0.4 X10'3 (1.1-4.8); MEAN CORPUSCULAR HEMOGLOBIN 31.1 PG (27.0-31.0); MONOCYTES # (AUTO) 0.7 X10'3 (0-0.9); PLATELET COUNT 63 X10'3 (140-440)
[2023-01-22 12:55] LABS: BASOPHILS % (AUTO) 0.4 % (0-1); HEMOGLOBIN 12.2 g/dl (12.0-16.0); LYMPHOCYTES % (AUTO) 12.8 % (21-51); MEAN CORPUSCULAR HGB CONC 33.8 g/dL (33.0-36.5); MEAN CORPUSCULAR VOLUME 91.8 FL (78-98); MEAN PLATELET VOLUME 7.8 FL (7.4-10.4); MONOCYTES % (AUTO) 22.3 % (2-12); NEUTROPHILS # (AUTO) 2.1 X10'3 (1.8-7.7); NEUTROPHILS % (AUTO) 64.5 % (42-75); RED BLOOD COUNT 3.92 X10'6 (4.20-5.60); RED CELL DISTRIBUTION WIDTH 13.8 % (11.5-14.5); WHITE BLOOD COUNT 3.2 X10'3 (4.5-11.0)
[2023-01-22 13:04] LABS: ALANINE AMINOTRANSFERASE 55 U/L (12-78); ALBUMIN 3.2 G/DL (3.4-5.0); ALBUMIN/GLOBULIN RATIO 0.8 (1.1-1.5); ALKALINE PHOSPHATASE 94 IU/L (46-116); ANION GAP 7 (8-16); ASPARTATE AMINO TRANSFERASE 39 U/L (10-37); BILIRUBIN,TOTAL 0.5 MG/DL (0.1-1.0); BLOOD UREA NITROGEN 25 MG/DL (7-18); BUN/CREATININE RATIO 16.4 (10.0-20.0); CALCIUM 9.6 MG/DL (8.5-10.1); CHLORIDE 105 MMOL/L (99-107); CREATININE 1.52 MG/DL (0.40-0.90); GLUCOSE 113 MG/DL (70-104); POTASSIUM 3.3 MMOL/L (3.5-5.1); SODIUM 139 MMOL/L (135-145); TOTAL CARBON DIOXIDE 26.8 MMOL/L (24-32); TOTAL PROTEIN 7.3 G/DL (6.4-8.2); eGFR 34 ML/MIN
[2023-01-22] MEDS ORDERED: normal saline 1000ml 1,000 ML IV ONE (13:20)
[2023-01-22] MEDS ORDERED: POTASSIUM BICARB 20meq eff tab 20 MEQ TABLET.EFF PO SCH (13:25)
[2023-01-22 13:28] LABS: TOTAL CELLS COUNTED 100
[2023-01-22 13:30] LABS: ANISOCYTOSIS 1+; PLATELET ESTIMATE DECREASED
[2023-01-22] MEDS ORDERED: iohexol 350MG/ML 100ml bottle IV ONE (13:41)
--- NOTE | 2023-01-22 13:44 | NUR ---
Pt to CT at this time
[2023-01-22 15:23] VITALS: BP 117/67
== END 2023-01-22 15:23 | disposition home or self-care (01) ==
LOC: ER 11:53
DX: R07.89 Other chest pain (principal); E78.00 Pure hypercholesterolemia, unspecified; K21.9 Gastro-esophageal reflux disease without esophagitis; E03.9 Hypothyroidism, unspecified; I12.9 Hypertensive chronic kidney disease with stage 1 through stage 4 chronic kidney disease, or unspecified chronic kidney disease; E11.22 Type 2 diabetes mellitus with diabetic chronic kidney disease; N18.9 Chronic kidney disease, unspecified; Z72.89 Other problems related to lifestyle; Z88.1 Allergy status to other antibiotic agents; Z79.899 Other long term (current) drug therapy
CPT/HCPCS: 71046; 71275; 80053; 84484; 85007; 85025; 85379; 93005; 96360; 96361; 99285; J3490; J7030; Q9967

== ENCOUNTER 2025-01-24 12:33 | Outpatient (CLI) | payer MEDICARE ==
[~2025-01-24 12:33] MED LIST changes: -LOSA100T57 PO; +LOSA100T58 PO
--- NOTE | 2025-01-24 13:42 | RADIOLOGY REPORT ---
MRI LUMBAR SPINE CLINICAL HISTORY: OT INTVRT DISC DEGEN, LUM RGN W DISCOG BCK LW EXTRM PAIN TECHNIQUE: Multi planar, multi sequence MR images of the lumbar spine without intravenous contrast. Comparison: None FINDINGS: The conus terminates at an appropriate level and demonstrates normal caliber and signal. There is a c hronic appearing compression deformity of the L5 vertebral body with approximately 40% height loss.. Remaining lumbar vertebral bodies demonstrate normal height. Marrow signal is appropriate. There is m ildly exaggerated lumbar lordosis. There is disc desiccation with disc space narrowing at L5-S1 and L 4-L5. There is a Schmorl's node in the L5 inferior endplate. The paraspinal soft tissues appear withi n normal limits. At L1-L2 there is disc bulge flattening the ventral thecal sac. There is no canal or significant for aminal stenosis. At L2-L3 there is mild bilateral facet arthropathy. There is minimal disc bulge. There is no canal o r significant foraminal stenosis. At L3-L4 there is diffuse disc bulge and bilateral facet arthropathy with ligamentum flavum thickenin g. There is indentation of the thecal sac without canal stenosis. There is mild bilateral neural for aminal stenosis. At L4-L5 there is diffuse disc bulge and bilateral facet arthropathy and mild ligamentum flavum thick ening. There is mild central canal stenosis. There is moderate left neural foraminal stenosis. At L5-S1 there is slight grade 1 retrolisthesis. There is posterior disc osteophyte complex and myla ateral facet arthropathy. There is mild central canal stenosis. There is moderate to severe bilatera l neural foraminal stenosis. IMPRESSION: 1. Multilevel degenerative changes in the lumbar spine as described by levels above. There is mild ce ntral canal stenosis at L4-L5 and L5-S1. 2. Moderate to severe bilateral L5-S1 and moderate left L4-L5 neural foraminal stenosis. 3. Chronic compression deformity of the L5 vertebral body with approximately 40% height loss. HS:Y
== END 2025-01-24 23:59 | disposition home or self-care (01) ==
LOC: MRI02 12:33
PROVIDERS: ATTEND Nurse Practitioner Family
DX: M47.817 Spondylosis without myelopathy or radiculopathy, lumbosacral region (principal); M51.362 Other intervertebral disc degeneration, lumbar region with discogenic back pain and lower extremity pain; M25.78 Osteophyte, vertebrae; M48.07 Spinal stenosis, lumbosacral region; M43.8X6 Other specified deforming dorsopathies, lumbar region
CPT/HCPCS: 72148